=== PATIENT | male | born 1955 | race Caucasian/White ===

== ENCOUNTER 2021-02-10 09:56 | Inpatient (IN) | payer OTHER ==
[~2021-02-10] VITALS: Ht 154.9 cm; Wt 64.1 kg
--- NOTE | ~2021-02-10 | O ---
[facility] [place] [address] OPERATIVE REPORT Name: ARIEL LOPEZ Room #: 441-P [facility] IN M.R.#: [id number] Admission: 02/10/21 Attend Phys: Jeancarlos Calles MD Discharge: 02/15/21 Date of : 59 Report #: [id number] THIS REPORT FOR: cc: Siddhartha Jesus MD, Christopher B. MD Wright, Andrew D. MD ~ DATE OF SERVICE: 02/11/2021 PREOPERATIVE DIAGNOSIS: Retained foreign body. History of urinary retention. POSTOPERATIVE DIAGNOSIS: No foreign body. PROCEDURE: Cystoscopy with fluoroscopy. SURGEON: Luther Lobato M.D. ANESTHESIA: General. COMPLICATIONS: None. DRAINS: None. FINDINGS: No evidence of any foreign body. HISTORY: This is a 65-year-old Icelandic-speaking gentleman who was transferred from a skilled facility where he was in rehab after previous left-sided leg amputation done at [facility]. Postoperatively, he had urinary retention, was left with a Hernandez catheter. Since he was in rehab they had not done any removal of his catheter. Up to that point, he had no previous history of any urologic conditions per his wood gouger. Yesterday when he was at his skilled facility he fell out of his wheelchair. He was complaining of inability to void and his a auxiliary cut his catheter, so he could urinate. There was question whether or not he had retained foreign body. A Hernandez catheter was reinserted in the emergency room and he was temporized. He was then scheduled for a cystoscopy to evaluate for this foreign body. I discussed risks, benefits, expected outcomes, and alternatives, and he gave consent. DESCRIPTION OF PROCEDURE: He was taken back to the operating room and given preoperative antibiotics and general anesthetic, prepped and draped in standard sterile fashion in dorsal lithotomy position on the operating table. Surgical timeout was performed. Upon inspection of the urethra with the 22-Croatian cystoscope with both the 30 and 70-degree lens, both anterior and posteriorly I did not see any evidence of any foreign body in the urethra. I looked with both these lenses in the bladder and there was sign of previous catheter irritation, but no sign of foreign body. The ureteral orifices were normal. The bladder was otherwise normal with mild trabeculation. No foreign bodies were seen [address] [address] OPERATIVE REPORT Name: ARIEL LOPEZ Room #: 441-P [facility] IN M.R.#: [id number] Admission: 02/10/21 Attend Phys: Jeancarlos Calles MD Discharge: 02/15/21 Date of : 59 Report #: [id number] cystoscopically. I checked fluoroscopically and did not see anything that was radiopaque. I then left his bladder fpc full and removed my scope to do voiding trial. We will check residuals and make sure he urinates in the next 24 hours before discharge. Questions all answered. By: [id number] Luther Lobato MD /nt
--- NOTE | ~2021-02-10 | EMS ---
[address] [address] EMS Patient Care Report Name: ARIEL LOPEZ Room #: 441-P [facility] IN M.R.#: [id number] Admission: 02/10/21 Attend Phys: Jeancarlos Calles MD Discharge: 02/15/21 Date of : 59 Report #: [id number] THIS REPORT FOR: //name// Report Transmitted: 02/17/2021 14:23 EMS Care Summary [facility] MED-ACT Incident [id number] @ 02/10/2021 09:27 Incident Location [address] [place] [address] Patient ARIEL LOPEZ Male, 65 Years 1955 Patient Address [address] [place] [address] Patient History Diabetes,Hypertension (HTN),Kidney/Renal Failure,Hyperlipidemia,Gastro-Esophageal Reflux Disease (GERD),Depression, Patient Allergies Lyrica, Patient Medications Oxycodone, Insulin, Aspirin, Ondansetron, Trazodone, Gabapentin, Tamsulosin, Chief Complaint "His berkowitz broke off" Disposition Transported No Lights/[place] Dispatch Reason Sick Person Transported To [facility] Narrative Dispatched to a [facility] in [place], [place]. On arrival Burkinan speaking patient through a PT infant caregiver reports the following: patient had some diarrhea today [facility] [address] [place] [address] EMS Patient Care Report Name: ARIEL LOPEZ Room #: 441-P [facility] IN .R.#: [id number] Admission: 02/10/21 Attend Phys: Jeancarlos Calles MD Discharge: 02/15/21 Date of : 59 Report #: [id number] and "messed himself". At some point during this his berkowitz catheter was cut. Patient is now having lower abd/ pain that he rates at 10/10. He feels like he needs to urinate. Patient is at the residential recovering from a left below the knee amputation. He had the surgery at [facility]. Patient's hospital of preference of [facility]. Patient informed of the closeness of [facility]. Patient makes informed decision for transport to [facility]. Hx is difficult due to language barrier. Patient received oxycodone this morning as normally prescribed medication. Patient found sitting on the edge of his bed in obvious pain. A open, B non labored, C s/r radial. HPI, PE, PMH. Very limited reports from staff and [employer]. Assist patient to standing where he is able to pivot to sit on cot with much help. Secure to cot. Move to MICU. Transport to [facility]. Monitor V/S. Biocom to [facility]. Patient begins dry heaving. Emesis bag provided and patient vomits about 100-200cc. On arrival at [facility] patient is still vomiting. Sheet drag procedure used to move patient to ED bed 11. Report given to ED RN. Appended: Report was updated to reflect the correct scene location. 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 [address] [place] [address] EMS Patient Care Report Name: ARIEL LOPEZ Room #: 441-P [facility] IN M.R.#: [id number] Admission: 02/10/21 Attend Phys: Jeancarlos Calles MD Discharge: 02/15/21 Date of : 59 Report #: [id number] 09:47,BP: 160/89 M,PULSE: 83,RR: R,SPO2: Ox,ETCO2: ,BG: ,PAIN: ,GCS: 15, 09:50,Depart Scene 09:51,BP: 154/84 M,PULSE: 81,RR: 16 R,SPO2: 98 Ox,ETCO2: ,BG: ,PAIN: 10,GCS: 15, 09:54,At Destination 10:18,Call Closed Disclaimer v1.1 Copyright 2020 [employer] This EMS Care Summary contains data elements from the applicable legal record (which may be displayed differently). It is designed to provide pertinent information for the following purposes: continuity of care, clinical quality, and state data reporting. The complete legal record is available to ED staff and administrators of the receiving hospital in [facility]'s Patient Tracker. All data is provided "as is."
--- NOTE | ~2021-02-10 | EMS ---
[address] [address] EMS Patient Care Report Name: ARIEL LOPEZ Room #: PRE M.R.#: [id number] Admission: Attend Phys: Discharge: Date of : 59 Report #: [id number] THIS REPORT FOR: //name// Report Transmitted: 02/10/2021 09:53 EMS Care Summary [facility] MED-ACT Incident [id number] @ 02/10/2021 09:27 Incident Location Out [address] [address] Patient ARIEL LOPEZ Male, 65 Years 1955 Patient Address [address] [place] [address] Patient History Diabetes,Hypertension (HTN),Kidney/Renal Failure,Hyperlipidemia,Gastro-Esophageal Reflux Disease (GERD),Depression, Patient Allergies Lyrica, Patient Medications Oxycodone, Insulin, Aspirin, Ondansetron, Trazodone, Gabapentin, Tamsulosin, Chief Complaint "His berkowitz broke off" Disposition Transported No Lights/[place] Dispatch Reason Sick Person Transported To [facility] Narrative Dispatched to a [facility] mutual aid in [place], [place]. On arrival Hebrew speaking patient through a PT emergency veterinarian reports the following: patient had some diarrhea today [address] [address] EMS Patient Care Report Name: ARIEL LOPEZ Room #: PRE [facility]#: [id number] Admission: Attend Phys: Discharge: Date of : 59 Report #: [id number] and "messed himself". At some point during this his berkowitz catheter was cut. Patient is now having lower abd/ pain that he rates at 10/10. He feels like he needs to urinate. Patient is at the custodial recovering from a left below the knee amputation. He had the surgery at [facility]. Patient's hospital of preference of [facility]. Patient informed of the closeness of [facility]. Patient makes informed decision for transport to [facility]. Hx is difficult due to language barrier. Patient received oxycodone this morning as normally prescribed medication. Patient found sitting on the edge of his bed in obvious pain. A open, B non labored, C s/r radial. HPI, PE, PMH. Very limited reports from staff and [employer]. Assist patient to standing where he is able to pivot to sit on cot with much help. Secure to cot. Move to MICU. Transport to [facility]. Monitor V/S. Biocom to [facility]. Patient begins dry heaving. Emesis bag provided and patient vomits about 100-200cc. On arrival at [facility] patient is still vomiting. Sheet drag procedure used to move patient to ED bed 11. Report given to ED RN. 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,BP: 111/87 M,PULSE: 88,RR: 20 R,SPO2: 100 Ox,ETCO2: ,BG: ,PAIN: ,GCS: , 09:20,Call Received 09:20,Psap Call 09:27,Dispatched 09:28,En Route 09:37,On Scene 09:39,At Patient 09:41,BP: / M,PULSE: 84,RR: 20 R,SPO2: 100 Ox,ETCO2: ,BG: ,PAIN: 10,GCS: , 09:47,BP: 160/89 M,PULSE: 83,RR: R,SPO2: Ox,ETCO2: ,BG: ,PAIN: ,GCS: 15, [facility] [address] [address] EMS Patient Care Report Name: ARIEL LOPEZ Room #: PRE M.R.#: [id number] Admission: Attend Phys: Discharge: Date of : 59 Report #: [id number] 09:50,Depart Scene 09:51,BP: 154/84 M,PULSE: 81,RR: 16 R,SPO2: 98 Ox,ETCO2: ,BG: ,PAIN: 10,GCS: 15, 09:54,At Destination 10:18,Call Closed Disclaimer v1.1 Copyright 2020 [employer] This EMS Care Summary contains data elements from the applicable legal record (which may be displayed differently). It is designed to provide pertinent information for the following purposes: continuity of care, clinical quality, and state data reporting. The complete legal record is available to ED staff and administrators of the receiving hospital in [employer]'s Patient Tracker. All data is provided "as is."
[2021-02-10 09:58] VITALS: BP 163/82
--- NOTE | 2021-02-10 10:24 | NUR ---
CALL TO [facility],
--- NOTE | 2021-02-10 10:28 | NUR ---
BLADDER SCAN 151ML
--- NOTE | 2021-02-10 10:33 | NUR ---
BS 159
[2021-02-10 12:09] LABS: BASOPHILS 0.6 % (0.0-2.0); EOSINOPHILS 1.3 % (0.0-3.0); HEMATOCRIT 35.9 % (42.0-52.0); HEMOGLOBIN 11.9 gm/dL (14.0-18.0); LYMPHOCYTES 22.1 % (24.0-44.0); MCH 30.2 pg (26.0-34.0); MCHC 33.1 g/dL (28.0-37.0); MCV 91.1 fL (80.0-100.0); MONOCYTES 6.6 % (1.0-8.0); PLATELET COUNT 339 thou/uL (150-400); POLYS 69.4 % (36.0-66.0); RBC 3.94 mil/uL (4.50-6.00); RDW 14.1 % (10.5-14.5); WBC 15.9 thou/uL (4.0-11.0)
[2021-02-10 12:16] LABS: CALCIUM 8.8 mg/dL (8.5-10.1); CREATININE 1.7 mg/dL (0.7-1.3); POTASSIUM 3.8 mmol/L (3.5-5.1)
[2021-02-10 12:29] LABS: URINE BILIRUBIN NEGATIVE (Negative); URINE BLOOD TRACE (Negative); URINE CLARITY CLOUDY; URINE COLOR YELLOW; URINE GLUCOSE-RANDOM* NEGATIVE (Negative); URINE KETONES 1+ (Negative); URINE PROTEIN (DIPSTICK) 2+ (Negative); URINE UROBILINOGEN 0.2 E.U./dl (0.2-1.0)
[2021-02-10 12:30] LABS: URINE LEUKOCYTES-REFLEX 2+ (Negative); URINE NITRITE-REFLEX POSITIVE (Negative)
[2021-02-10 12:42] LABS: BACTERIA-REFLEX >30 Many /HPF (None Seen); CASTS None Seen /LPF (None Seen); CRYSTALS None Seen /LPF (None Seen); SQUAMOUS None Seen /LPF (0-3); URINE RBC 1-2 Rare /HPF (NONE SEEN); URINE WBC-REFLEX >25 Many /HPF (0-5)
[2021-02-10 14:29] VITALS: BP 111/61
[2021-02-10 15:45] VITALS: BP 148/84
[2021-02-10 19:30] VITALS: BP 144/74
--- NOTE | 2021-02-10 19:31 | NUR ---
Pt. was transfered from ER. He had been a his rehabilitation clinic and was dropped by therapist. His berkowitz was caught underneath the wheel of his wheelchair and was split. Berkowitz was replaced and surgery will be done in am to remove any remaining foreighn object. Pt was AxOx4 liberian speaking only. Used venetian blind assembler to get all admission information. 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 Pt can't ambulate and is confined to a wheelchair at home. Bed is in low position and fall precautions are in place. Gave report to night RN.
[2021-02-10 22:37] VITALS: BP 144/74
[2021-02-11] VITALS (12 sets, daily range): BP systolic 120–152; BP diastolic 55–77
[2021-02-11 05:21] LABS: ABSOLUTE NEUTROPHILS 6.1 thou/uL (1.4-8.2); BASOPHILS 0.7 % (0.0-2.0); EOSINOPHILS 3.8 % (0.0-3.0); HEMATOCRIT 31.1 % (42.0-52.0); HEMOGLOBIN 10.7 gm/dL (14.0-18.0); MCHC 34.3 g/dL (28.0-37.0); MCV 90.5 fL (80.0-100.0); MONOCYTES 9.6 % (1.0-8.0); PLATELET COUNT 291 thou/uL (150-400); POLYS 52.9 % (36.0-66.0); RBC 3.43 mil/uL (4.50-6.00); WBC 11.5 thou/uL (4.0-11.0)
[2021-02-11 05:27] LABS: CALCIUM 8.2 mg/dL (8.5-10.1); CREATININE 1.5 mg/dL (0.7-1.3); MAGNESIUM 1.8 mg/dL (1.8-2.4); POTASSIUM 3.9 mmol/L (3.5-5.1)
--- NOTE | 2021-02-11 08:31 | NUR ---
UPON SHIFT ASSESSMENT, PT NEPALI SPEAKING, AOX4. PT DENIES PAIN AND SOB WHILE ON ROOM AIR. PT TOLERATING PO INTAKE OF FLUIDS AND REGULAR DIET WITHOUT ISSUE, NPO AT MIDNIGHT. PT WITHOUT NAUSEA OR EMESIS. PT VOIDING PER HENSLEY CATHETER, INCONTINENT OF BOWEL. PT NONAMBULATORY, RESTING IN BED THROUGHOUT SHIFT, FREQUENT REPOSITIONING ENCOURAGED, PT REFUSING REPOSITIONING ASSISTANCE DUE TO COMFORT, PT NOTED TO SHIFT SLIGHTLY ON HIS OWN. SENSATION INTACT, CAPILLARY REFILL LESS THAN 3SEC, PERIPHERAL PULSES INTACT IN ALL EXTREMITIES. PT ENCOURAGED TO NOTIFY STAFF FOR ALL NEEDS, CALL LIGHT WITHIN REACH, BED ALARM ON, BED LOCKED IN LOWEST POSITION, FREQUENT MONITORING WILL CONTINUE.
--- NOTE | 2021-02-11 09:11 | NUR ---
Pt AXOX4 REMAINS NPO WAITING FOR SURGERY THIS AM. PT TRANSPORTED AT 8:50 DOWN TO PACU. REMOVED LEG BRACE FROM LEFT BKA.
[2021-02-11] MEDS ORDERED: ACETAMINOPHEN325 M1 PO (14:36)
[2021-02-11] MEDS ORDERED: ARTIFICIAL TEAR1510 OPHTHALMIC (14:38)
[2021-02-11] MEDS ORDERED: ASA81BEC PO (14:39)
[2021-02-11] MEDS ORDERED: LIPITOR40 MG PO (14:40)
[2021-02-11] MEDS ORDERED: DORYX MPC120 MG PO (14:43)
[2021-02-11] MEDS ORDERED: SLOW FE142 MG PO (14:45)
[2021-02-11] MEDS ORDERED: FLUOXETINE HCL40 MG PO (15:07)
[2021-02-11] MEDS ORDERED: GABAPENTIN100 MG PO (15:09)
[2021-02-11] MEDS ORDERED: INSULIN AS100 UNIT/2 SUBQ (15:15)
[2021-02-11] MEDS ORDERED: LEVEMIR100 UNIT/1 SUBQ (15:17)
[2021-02-11] MEDS ORDERED: MEROPENEM1 GM IV (15:19)
[2021-02-11] MEDS ORDERED: MULTIPLE VITAM1 EAC2 PO (15:20)
[2021-02-11] MEDS ORDERED: ONDANSETRON HCL4 M2 PO (15:21)
[2021-02-11] MEDS ORDERED: PERCOCET 5-3251 EACH PO (15:22)
[2021-02-11] MEDS ORDERED: CVS SENNA PLUS1 EACH PO (15:24)
[2021-02-11] MEDS ORDERED: FLOMAX0.4 MG PO (15:25)
[2021-02-11] MEDS ORDERED: TRAZODONE HCL50 MG PO (15:26)
[2021-02-11] MEDS ORDERED: MYLANTA COAT-C355 ML PO (15:34)
--- NOTE | 2021-02-12 05:33 | NUR ---
PT'S AFMILY AT BEDSIDE AT SHIFT CHANGE.PT DENIED PAIN/N/V. PT ALERT/CALM AND COPERATIVE WITH CARE.MATTEO REEVES BRACE ON.HENSLEY TO DD.LIGHT YELLOW URINE NOTED.SS INSULIN GIVEN AT HS.PT SRI LANKAN SPEAKING ONLY.NO CONCERNS NOTED SO FAR.CALL LIGHT WITHIN REACH.
[2021-02-12 09:00] VITALS: BP 134/78
[2021-02-12 16:02] VITALS: BP 118/55
[2021-02-12 19:18] VITALS: BP 118/68
--- NOTE | 2021-02-13 03:45 | NUR ---
PT LYING IN BED. HENSLEY CATHETER IN PLACE. DENIES PAIN. RESTING COMFORTABLY. NO NEEDS VOICED. CALL LIGHT WITHIN REACH. FREQUENT OBSERVATION.
[2021-02-13 06:13] LABS: CALCIUM 7.7 mg/dL (8.5-10.1); CREATININE 1.3 mg/dL (0.7-1.3); MAGNESIUM 1.4 mg/dL (1.8-2.4); POTASSIUM 3.7 mmol/L (3.5-5.1)
[2021-02-13 06:14] LABS: HEMATOCRIT 29.9 % (42.0-52.0); HEMOGLOBIN 10.3 gm/dL (14.0-18.0); MCH 31.4 pg (26.0-34.0); MCHC 34.5 g/dL (28.0-37.0); MCV 91.1 fL (80.0-100.0); RBC 3.28 mil/uL (4.50-6.00); RDW 13.7 % (10.5-14.5)
[2021-02-13 07:10] VITALS: BP 132/69
--- NOTE | 2021-02-13 11:19 | NUR ---
PATIENT ALERT AND ORINT X4, ON ROOM AIR, WITH SBA WITH WALKER AND GAIT BELT, DID GREAT PIVIOTING TO CHAIR FROM BED, TOLERATING DIET WELL, HENSLEY IN PLACE AND WILL BE DISCHARGED WITH IT PER UROLOGY - RN CLARIFIED, VITAL SIGNS STABLE, AND AFBRIELE. CALL LIGHT WITH IN REACH, WILL CONTINUE TO MONITOR.
--- NOTE | 2021-02-13 13:19 | NUR ---
ASSESSMENT: CM REVIEWED CHART AND SPOKE WITH PATIENT AT THE BEDSIDE. PT IS ALERT AND ORIENTED X4. PTS PREFERRED LANGUAGE IS OCCITAN. CM SPOKE WITH PATIENT AT THE BEDSIDE VIA REWINDER OPERATOR. PT ADMITTED FROM [facility] WHERE HE WAS THERE FOR A SNF STAY BUT WAS THEN ADMITTED TO [facility] DUE TO CATHETER ISSUE. PT HAD RECENT LEFT BKA AND WAS AT [facility]. PT REPORTS THAT HE DOES NOT WANT TO RETURN TO THAT FACILITY AND FELT IT WAS POOR CARE. CM NOTIFIED PT THERE ARE ALTERNATE FACILITIES AND PROVIDED HIM WITH A SNF LIST. PT REQUESTED REFERRAL BE SENT TO [facility]. CM FAXED REFERRAL. [facility] STATING THEY WILL REVIEW IT AND CM NOTIFIED THEM PT IS OCCITAN SPEAKING. PT REQUESTING [facility] TO PACK UP HIS BELONGINGS SO HIS FAMILY CAN PICK IT UP. CM NOTIFIED [facility] FROM [facility]. AWAITING FURTHER INPUT FROM [facility] AT THIS TIME. CM WILL CONTINUE TO FOLLOW.
[2021-02-13 16:00] VITALS: BP 133/66
[2021-02-13 19:18] VITALS: BP 143/78
--- NOTE | 2021-02-14 01:21 | NUR ---
ASSUMED PT CARE AT 1900.PT WAS OBSERVED WATCHING TV AT SHIFT CHANGE.PT C/O PAIN TO HIS LEG,MANAGED WITH MED.HENSLEY CATH TO DD.PT ABLE TO REPOSITION SELF IN BED.IMMOBILIZER TO LLE.CALL LIGHT WITHIN REACH.
[2021-02-14 04:34] VITALS: BP 123/76
[2021-02-14 07:33] VITALS: BP 109/51
--- NOTE | 2021-02-14 08:11 | HC ---
[facility] [place] [address] CONSULTATION Name: ARIEL LOPEZ Room #: 441-P ADM IN M.R.#: [id number] Admission: 02/10/21 Attend Phys: Jeancarlos Calles MD Discharge: Date of : 59 Report #: [id number] THIS REPORT FOR: cc: Siddhartha Jesus MD, Christopher B. MD Barry, Joseph W. MD ~ DATE OF SERVICE: 02/13/2021 INFECTIOUS DISEASE CONSULTATION ATTENDING PHYSICIAN: Dr. Calles. REASON FOR EVALUATION: Complicated urinary tract infection and the patient with requirement for indwelling bladder catheter due to bladder dysfunction and it has been complicated by multiple resistant organism. HISTORY OF PRESENT ILLNESS: Chart reviewed and the patient examined. This is a 65-year-old gentleman presented from an outside facility. He has underlying vasculopathy, recent left below-knee amputation. He was discharged from the hospital with indwelling catheter. It was apparent that was dysfunctional, unable to maintain adequate output. Catheter was exchanged, although urinalysis obtained showed marked pyuria, bacteriuria. Result culture was performed which grew out Escherichia coli that was identified as extended-spectrum beta-lactamase producing, had initially been treated with ceftriaxone. This is adjusted to meropenem. The history is obtained through a goggle translation. At this point, he denies any significant pain associated with the lower abdomen. No pulmonary related complaints. He has not had recent fevers. Most recent white count was 15.0, creatinine 1.3. ALLERGIES: LISTED TO PREGABALIN. CURRENT MEDICATIONS: Include meropenem, insulin glargine, trazodone, atorvastatin, multivitamin, fluoxetine, ferrous sulfate, aspirin, tamsulosin, pantoprazole. PAST MEDICAL HISTORY: As described above, neurogenic bladder requiring indwelling Hernandez catheter previous. SOCIAL HISTORY: He is disabled. FAMILY HISTORY: Noncontributory. REVIEW OF SYSTEMS: Otherwise, somewhat limited, although denies any pulmonary or gastrointestinal related complaints. PHYSICAL EXAMINATION: [facility] [address] [place] [address] CONSULTATION Name: ARIEL LOPEZ Room #: [facility] IN ..#: [id number] Admission: 02/10/21 Attend Phys: Jeancarlos Calles MD Discharge: Date of : 59 Report #: [id number] GENERAL: He appears chronically ill, undernourished. He is alert, cooperative, mild to moderate distress. VITAL SIGNS: Temperature 98.4, pulse 72, respirations 16, blood pressure 132/69. SKIN: Warm, dry, no rashes. HEENT: Normocephalic. Extraocular muscles intact. NECK: Supple. LUNGS: Diminished breath sounds, otherwise clear. HEART: Regular. I do not appreciate a murmur ABDOMEN: Soft. There are no peritoneal signs. EXTREMITIES: Left lower extremity has a splint in place. Evidence of the BKA. GENITOURINARY AND RECTAL: Deferred. LABORATORY DATA: Electrolytes: Sodium 140, potassium 3.7, chloride 106, bicarbonate is 25, anion gap of 9, BUN and creatinine 19 and 1.3. CBC: White count of 15.0, H and H 10.3 and 29, platelets of 242. ASSESSMENT AND PLAN: Complicated urinary tract infection in setting of extended indwelling Hernandez catheter with isolation of multiple drug-resistant organism, extended-spectrum beta-lactamase Escherichia coli. Continue meropenem. At this point, noted attempts to recently remove the catheter which were not successful. At this point, he is not overtly toxic. Continue to monitor expectantly, certainly at risk for additional complications. We will add incentive spirometry. At some point in the next two to three days, we will repeat the urinalysis to assure that this be some degree of clearance. <ELECTRONICALLY SIGNED> By: Woodrow Tierney MD 02/14/21 0811 [id number] Woodrow Tierney MD /nt
--- NOTE | 2021-02-14 12:55 | NUR ---
ON-GOING ASSESSMENT: CM REVIEWED CHART AND SPOKE WITH ATTENDING. PT REMAINS ON IV ANBX AT THIS TIME AND RECEIVING THERAPIES. CM CONTACTED INTERPRETOR AND SPOKE WITH PATIENT AT THE BEDSIDE. CM DISCUSSED REFERRAL WAS SENT TO [facility] BUT HE ONLY HAS ABOUT 14 SNF DAYS LEFT AND THEN WOULD BE IN [place] DAYS AND [facility] IS [place] THE [place] SIDE SO WE WOULD LIKELY NEED A [place] FACILITY DUE TO HIS SECONDARY INSURANCE. PT IS AGREEABLE AND HAS NO PREFERENCE OF FACILITY. REFERRAL WAS SENT TO [facility] IN [place], [place]. JASE SPOKE WITH JUSTICE IN ADMISSIONS WHO REPORTS THEY CAN LIKELY ACCEPT SHE JUST NEEDS TO VERIFY HIS DAYS AND WILL GET BACK TO CM. PT IS AGREEABLE WITH GOING TO [facility] AND REPORTS HE HAS BEEN KEEPING HIS FAMILY UPDATED. CM AWAITING FINAL ACCEPTANCE FROM [facility]. CM UPDATED ATTENDING.
--- NOTE | 2021-02-14 14:48 | NUR ---
ON-GOING ASSESSMENT: CM REVIEWED CHART AND SPOKE WITH ATTENDING. ID CAME AND SAW PATIENT. PT HAS COMPLICATED UTI AND IS ON IV MEROPENEM CURRENTLY AND HAS INDWELLING FOWLEY. PT WILL HAVE REPEAT URINALYSIS IN THE AM TO ENSURE IMPROVEMENT. CM UPDATED [facility] THAT PATIENT WILL REMAIN HERE OVERNIGHT AND CM WILL FOLLOW UP IN THE AM. CM UPDATED PATIENT AND BEDSIDE RN. CM WILL CONTINUE TO FOLLOW TO ASSIST NEEDED.
--- NOTE | 2021-02-14 17:17 | NUR ---
ASSUMED CARE OF PT AT 0700 THIS MORNING. PT WAS ADMITTED FOR MALFUNCTION OF INDWELLING CATH. PT HAS ISSUES WITH URINARY RETENTION. PT IS HEBREW SPEAKING BUT UNDERSTANDS SOME AMERICAN. PT HAS DRESSING ON LT LEG WHERE AMPUTATED C/D/I. TOES ON RT FOOT ARE AMPUTATED WELL. INDWELLING CATH IS IN PLACE. PT IS ABLE TO AMBULATE WIH WALKER AND GAIT BELT. ASSESSMENTS CHARTED AND OTHERWISE UNREMARKABLE. RT UPPER ARM MIDLINE IN PLACE AND HAS BEEN VERIFIED BY IV TEAM THAT THE LINE IS MIDLINE AND NOT PICC. CALL LIGHT AND OTHER NEEDS ARE WITHIN REACH. MEDS AND TX GIVEN ASS NEEDED AN SCHEDULED.
[2021-02-14 19:28] VITALS: BP 152/82
[2021-02-15 04:30] VITALS: BP 138/80
--- NOTE | 2021-02-15 04:40 | NUR ---
PT DENIED PAIN SO FAR.NO CONCERNS NOTED THIS SHIFT.PT CONT ON IVF AND IV ABX ORDERED.HENSLEY CATH TO DD WITH LIGHT YELLOW URINE NOTED IN THE BAG.FALL AND ISOLATION PRECAUTION MAINTAINED.CALL LIGHT WITHIN REACH.
[2021-02-15 07:07] VITALS: BP 144/74
[2021-02-15 12:57] LABS: URINE BILIRUBIN NEGATIVE (Negative); URINE BLOOD NEGATIVE (Negative); URINE CLARITY CLEAR; URINE COLOR YELLOW; URINE GLUCOSE-RANDOM* NEGATIVE (Negative); URINE KETONES NEGATIVE (Negative); URINE LEUKOCYTES NEGATIVE (Negative); URINE NITRITE NEGATIVE (Negative); URINE PROTEIN (DIPSTICK) NEGATIVE (Negative); URINE SPECIFIC GRAVITY <= 1.005 (1.005-1.035); URINE UROBILINOGEN 0.2 E.U./dl (0.2-1.0)
--- NOTE | 2021-02-15 13:10 | NUR ---
PATIENT ALERT AND ORINTED X4, ON ROOM AIR, PATTERN GRADER USED FOR INTERPETATION, VITAL SIGNS STABLE, AND AFBRIELE, CALL LIGHT WITH IN REACH, WILL CONTINUE TO MONITOR.
[2021-02-15 15:05] VITALS: BP 126/68
[2021-02-15] MEDS ORDERED: HUMALOG100 UNIT/1 SUBQ (15:12)
[2021-02-15] MEDS ORDERED: PROTONIX 20 MG20 M1 PO (15:12)
[2021-02-15] MEDS ORDERED: LANTUS SUBQ (15:12)
[2021-02-15] MEDS ORDERED: NITROFURANTOIN100 MG PO (15:17)
--- NOTE | 2021-02-15 15:45 | NUR ---
ON-GOING ASSESSMENT: CM REVIEWED CHART AND SPOKE WITH ATTENDING WHO WANTED CLEARANCE FROM ID PRIOR TO DISCHARGE. PT HAS BEEN CLEARED TO DISCHARGE TO SNF TODAY ON ORAL ANBX. CM NOTIFIED JUSTICE IN ADMISSIONS AT [facility] AND SHE STATES THEY CAN ACCEPT AND HAVE A BED OPEN TODAY. CM FAXED DISCHARGE PAPERWORK AND CONFIRMED THEY RECEIVED IT. CHART COPY WAS ORDERED. CM MET WITH PATIENT AT THE BEDSIDE VIA INTERPRETOR SERVICES ON IPAD AND NOTIFIED PT AND HE HAD NO FURTHER QUESTIONS AND REPORTS THAT HE NOTIFIED FAMILY. CM PROVIDED PATIENT WITH THE ADDRESS AND CONTACT NUMBER TO FACILITY FOR HIM TO PROVIDE TO HIS FAMILY. BEDSIDE RN HAS THE NUMBER FOR REPORT. TRANSPORTATION HAS BEEN ARRANGED FOR 1730. BEDSIDE RN AND PT AWARE.
--- NOTE | 2021-02-15 18:00 | NUR ---
PATIENT DC'D TO FACILITY, IV OUT, REPORT WAS GIVEN, AND WHEELED OUT IN WHEELCHAIR WITH PACKET FOR FACILITY.
== END 2021-02-15 18:30 | DRG 698 ==
LOC: ER 09:56 → 4S 12:53 → EROBS 12:53 → 4S 15:32
PROVIDERS: Emergency Medicine; Nurse Practitioner; ADMIT Internal Medicine; ATTEND Internal Medicine
PROC: 0TJB8ZZ Inspection of Bladder, Via Natural or Artificial Opening Endoscopic (ICD-10-PCS; principal; 2021-02-11)
PROC: 0TJB8ZZ Inspection of Bladder, Via Natural or Artificial Opening Endoscopic (ICD-10-PCS; 2021-02-11)
PROC: 05HC33Z Insertion of Infusion Device into Left Basilic Vein, Percutaneous Approach (ICD-10-PCS; 2021-02-15)
DX: T83.091A Other mechanical complication of indwelling urethral catheter, initial encounter (principal); N17.0 Acute kidney failure with tubular necrosis; N39.0 Urinary tract infection, site not specified; Z16.24 Resistance to multiple antibiotics; Z16.12 Extended spectrum beta lactamase (ESBL) resistance; Z88.8 Allergy status to other drugs, medicaments and biological substances; B96.20 Unspecified Escherichia coli [E. coli] as the cause of diseases classified elsewhere; E78.5 Hyperlipidemia, unspecified; K21.9 Gastro-esophageal reflux disease without esophagitis; N18.9 Chronic kidney disease, unspecified; F32.9 Major depressive disorder, single episode, unspecified; E11.40 Type 2 diabetes mellitus with diabetic neuropathy, unspecified; E11.22 Type 2 diabetes mellitus with diabetic chronic kidney disease; N31.9 Neuromuscular dysfunction of bladder, unspecified; F41.1 Generalized anxiety disorder; I12.9 Hypertensive chronic kidney disease with stage 1 through stage 4 chronic kidney disease, or unspecified chronic kidney disease; E78.00 Pure hypercholesterolemia, unspecified; R33.9 Retention of urine, unspecified; R53.81 Other malaise; Z89.512 Acquired absence of left leg below knee; T19.0XXA Foreign body in urethra, initial encounter; Y83.8 Other surgical procedures as the cause of abnormal reaction of the patient, or of later complication, without mention of misadventure at the time of the procedure; X58.XXXA Exposure to other specified factors, initial encounter; Y93.89 Activity, other specified; Y92.89 Other specified places as the place of occurrence of the external cause; Y99.8 Other external cause status
CPT/HCPCS: 10102; 50010; 50101; 56815; 57160; 58565; 62110; 62900; 70005